=== PATIENT | female | born 1970 | race Two or more races ===

== ENCOUNTER 2023-12-21 22:59 | Emergency (ER) | payer OTHER ==
[~2023-12-21] VITALS: Ht 152.4 cm; Wt 61.2 kg
[2023-12-22] MEDS ORDERED: METOCLOPRAMIDE HCL 5 MG/ML VIAL IM STA (00:26)
[2023-12-22] MEDS ORDERED: HYOSCYAMINE SULFATE 0.125 MG TAB.SUBL SL STA (00:27)
[2023-12-22] MEDS ORDERED: KETOROLAC TROMETHAMINE 60 MG VIAL IM STA (00:27)
[2023-12-22] MEDS ORDERED: FAMOtidine 10 MG/ML (4ML VIAL) IV PUSH STA (00:28)
[2023-12-22 00:45] LABS: HEMATOCRIT 35.1 % (36.0-45.00); HEMOGLOBIN 11.9 g/dL (12.0-15.00); MEAN CELL VOLUME 88.8 fL (80.00-100.00); MEAN CORPUSCULAR HEMOGLOBIN 30.1 pg (27.00-32.0); MEAN CORPUSCULAR HGB CONC 33.9 g/dl (32.0-36.0); PLATELET COUNT 285 K/uL (150-450); RED BLOOD COUNT 3.95 M/uL (4.00-6.00); RED CELL DISTRIBUTION WIDTH 13.7 % (11.5-14.5)
[2023-12-22 01:21] LABS: PH,URINE 5.5 (5.0-8.0); URINE APPEARANCE Clear; URINE BILIRRUBIN Negative (NEGATIVE); URINE BLOOD Negative; URINE COLOR Yellow; URINE GLUCOSE Negative (NEGATIVE); URINE KETONE 15 (NEGATIVE); URINE LEUKOCYTE Negative; URINE NITRATE Negative; URINE PROTEIN Negative (NEGATIVE)
[2023-12-22 01:24] LABS: URINE BACTERIA 566.8 uL (0.0-1933); URINE EPITHELIAL CELLS 29.3 uL (0.0-38.8); URINE RBC 2.9 uL (0.0-20.8); URINE WBC 6.9 uL (0.0-23.2)
[2023-12-22] MEDS ORDERED: LACTULOSE 10 G/15 ML ML PO STA (02:42)
== END 2023-12-22 02:58 | disposition home or self-care (01) ==
LOC: ER 23:01
DX: K21.9 Gastro-esophageal reflux disease without esophagitis (principal); K59.01 Slow transit constipation